=== PATIENT | male | born 1985 | race American Indian/Alaskan Native ===

== ENCOUNTER 2016-08-01 22:06 | Emergency (ER) | payer SELFPAY ==
[2016-08-02 02:01] LABS: Urine Drugs of Abuse Note Disclamer
[2016-08-02 02:22] LABS: Bilirubin,Urine NEG (Negative); Blood,Urine SM (Negative); Ketones,Urine NEG (Negative); Leukocyte Esterase,Urine NEG (Negative); Mucus,Urine FEW /HPF; Nitrite,Urine NEG (Negative); Urobilinogen,Urine < 2.0 mg/dL (<2.0)
[2016-08-02 02:55] VITALS: BP 125/85
--- NOTE | 2016-08-02 14:30 | ED Elopement Review ---
ED Pt Elopement review - Results review Lab results: Laboratory Tests 08/01/16 08/01/16 Unknown Unknown Urine Color Yellow Urine Turbidity Clear Urine pH 5.0 Ur Specific [place] 1.023 Urine Protein 30 mg/dl Urine Glucose (UA) Neg Urine Ketones Neg Urine Blood Sm Urine Nitrite Neg Urine Bilirubin Neg Urine Urobilinogen < 2.0 Ur Leukocyte Esterase Neg Urine WBC (Auto) 6.0 Urine RBC (Auto) 1.0 U Epithel Cells (Auto) < 1.0 Urine Mucus Few Urine Opiates Screen Presumptive negative Urine Methadone Screen Presumptive negative Ur Barbiturates Screen Presumptive negative Ur Phencyclidine Scrn Presumptive negative Ur Amphetamines Screen Presumptive negative U Benzodiazepines Scrn Presumptive negative Urine Cocaine Screen Presumptive negative U Marijuana (THC) Screen Presumptive positive Drugs of Abuse Note Disclamer - Call Back decision Pt Call Back Decision: Pt to F/U with PMD
== END 2016-08-02 04:56 | disposition left against medical advice (07) ==
LOC: ED 22:06
DX: R53.1 Weakness (principal); Z53.21 Procedure and treatment not carried out due to patient leaving prior to being seen by health care provider
CPT/HCPCS: 80307; 81001; 93005; 93010

== ENCOUNTER 2016-12-30 04:08 | Emergency (ER) | payer SELFPAY ==
[2016-12-30 04:15] VITALS: BP 125/72
--- NOTE | 2016-12-30 06:22 | Emergency Department Report ---
- General Chief Complaint: Upper Respiratory Infection Stated Complaint: COUGH Time Seen by Provider: 12/30/16 05:33 Source: patient Mode of arrival: Ambulatory Limitations: No Limitations - History of Present Illness Initial Comments: 31-year-old male past medical history smoker presents with complaint of 3 weeks of persistent productive cough. Subjective chills. Patient is awake alert and oriented 3 not in acute distress and nontoxic appearing. States he smokes 1-2 packs per day. Denies any dyspnea with exertion. Denies any abdominal pain diarrhea nausea or vomiting. Tolerating by mouth without difficulty. No audible wheezing or stridor. Denies sore throat. States he has not been taking any sjof-xkx-cfofkka medicines for his symptoms. Denies night sweats MD Complaint: cough Onset/Timin -: week(s) Severity: moderate Improves With: nothing Associated Symptoms: chills, cough Treatments Prior to Arrival: none - Related Data Previous Rx's Medication Instructions Recorded Last Taken Type Cyclobenzaprine [Flexeril] 10 mg PO TID PRN #14 tablet 07/10/13 Unknown Rx HYDROcodone/APAP 5-325 [[place] 1 each PO Q6HR PRN #14 tablet 07/10/13 Unknown Rx 5/325 mg] Ibuprofen [Motrin 600 MG tab] 600 mg PO Q8H PRN #30 tablet 07/10/13 Unknown Rx Ciprofloxacin HCl [Ciprofloxacin 500 mg PO Q12HR #14 tab 04/02/15 Unknown Rx TAB] Promethazine [Phenergan TAB] 25 mg PO Q6HR PRN #10 tab 04/02/15 Unknown Rx traMADol [Ultram 50 MG tab] 50 mg PO Q6HR PRN #20 tablet 04/02/15 Unknown Rx ALBUTEROL Inhaler [ProAir HFA 2 puff IH QID PRN #1 inhalation 12/30/16 Unknown Rx Inhaler] Azithromycin [Zithromax TAB] 250 mg PO QDAY #4 tablet 12/30/16 Unknown Rx Naproxen [Naprosyn TAB] 375 mg PO BID PRN #20 tablet 12/30/16 Unknown Rx Phenylephrine/Dm/Acetaminop/GG 10 ml PO Q4H PRN #1 bottle 12/30/16 Unknown Rx [Mucinex Hrfc-Sii-Ichxrfjlgj Lq] predniSONE [Deltasone] 40 mg PO QDAY #10 tab 12/30/16 Unknown Rx Allergies Allergy/AdvReac Type Severity Reaction Status Date / Time No Known Allergies Allergy Verified 04/02/15 07:46 ED Review of Systems ROS: Stated complaint: COUGH Other details as noted in HPI Constitutional: malaise. denies: chills, fever Eyes: denies: eye pain, eye discharge, vision change ENT: denies: ear pain, throat pain Respiratory: cough. denies: shortness of breath, wheezing Cardiovascular: denies: chest pain, palpitations Endocrine: no symptoms reported Gastrointestinal: denies: abdominal pain, nausea, diarrhea Genitourinary: denies: urgency, dysuria Musculoskeletal: denies: back pain, joint swelling, arthralgia Skin: denies: rash, lesions Neurological: denies: headache, weakness, paresthesias Psychiatric: denies: anxiety, depression Hematological/Lymphatic: denies: easy bleeding, easy bruising ED Past Medical Hx - Past Medical History Previous Medical History?: No Hx Hypertension: Yes Additional medical history: bronchitis - Surgical History Past Surgical History?: No - Social History Smoking Status: Current Every Day Smoker Substance Use Type: None - Medications Home Medications: Home Medications Medication Instructions Recorded Confirmed Last Taken Type Cyclobenzaprine [Flexeril] 10 mg PO TID PRN #14 tablet 07/10/13 Unknown Rx HYDROcodone/APAP 5-325 [[place] 1 each PO Q6HR PRN #14 tablet 07/10/13 Unknown Rx 5/325 mg] Ibuprofen [Motrin 600 MG tab] 600 mg PO Q8H PRN #30 tablet 07/10/13 Unknown Rx Ciprofloxacin HCl [Ciprofloxacin 500 mg PO Q12HR #14 tab 04/02/15 Unknown Rx TAB] Promethazine [Phenergan TAB] 25 mg PO Q6HR PRN #10 tab 04/02/15 Unknown Rx traMADol [Ultram 50 MG tab] 50 mg PO Q6HR PRN #20 tablet 04/02/15 Unknown Rx ALBUTEROL Inhaler [ProAir HFA 2 puff IH QID PRN #1 inhalation 12/30/16 Unknown Rx Inhaler] Azithromycin [Zithromax TAB] 250 mg PO QDAY #4 tablet 12/30/16 Unknown Rx Naproxen [Naprosyn TAB] 375 mg PO BID PRN #20 tablet 12/30/16 Unknown Rx Phenylephrine/Dm/Acetaminop/GG 10 ml PO Q4H PRN #1 bottle 12/30/16 Unknown Rx [Mucinex Szth-Juc-Eenjsqyvnd Lq] predniSONE [Deltasone] 40 mg PO QDAY #10 tab 12/30/16 Unknown Rx ED Physical Exam - General Limitations: No Limitations General appearance: alert, in no apparent distress - Head Head exam: Present: atraumatic, normocephalic - Eye Eye exam: Present: normal appearance, PERRL, EOMI - ENT ENT exam: Present: mucous membranes moist - Neck Neck exam: Present: normal inspection - Respiratory Respiratory exam: Present: decreased breath sounds (slightly decreased breath sounds right lower lung field. No audible wheezing or stridor or rhonchi). Absent: respiratory distress - Cardiovascular Cardiovascular Exam: Present: regular rate, normal rhythm. Absent: systolic murmur, diastolic murmur, rubs, gallop - GI/Abdominal GI/Abdominal exam: Present: soft, normal bowel sounds - Rectal Rectal exam: Present: deferred - Extremities Exam Extremities exam: Present: normal inspection - Back Exam Back exam: Present: normal inspection - Neurological Exam Neurological exam: Present: alert, oriented X3, CN II-XII intact, normal gait - Psychiatric Psychiatric exam: Present: normal affect, normal mood - Skin Skin exam: Present: warm, dry, intact, normal color. Absent: rash ED Course Vital Signs 12/30/16 04:12 Temperature 98.2 F Pulse Rate 83 Respiratory 17 Rate Blood Pressure 125/72 O2 Sat by Pulse 100 Oximetry ED Medical Decision Making - Medical Decision Making A/P: Acute bronchitis 1-patient is a smoker I will treat him empirically with azithromycin pack. Possible infiltrates right middle lobe region chest x-ray. 2-prednisone, naproxen, albuterol inhaler, Mucinex 3-f/u with primary care 4-I advised patient to follow-up but to return to the ED if he has high fevers and chills above 100.4 despite Tylenol arm naproxen use, if he develops inability to tolerate by mouth if he develops severe fevers and chills that do not improve over the next several days. For any dyspnea with exertion. Patient stated he understood my instructions. Critical care attestation.: If time is entered above; I have spent that time in minutes in the direct care of this critically ill patient, excluding procedure time. ED Disposition Clinical Impression: Acute bronchitis Qualifiers: Bronchitis organism: unspecified organism Qualified Code(s): J20.9 - Acute bronchitis, unspecified Reactive airway disease Qualifiers: Asthma severity: mild intermittent Asthma complication type: with acute exacerbation Qualified Code(s): J45.21 - Mild intermittent asthma with (acute) exacerbation Disposition: TO HOME OR SELFCARE Is pt being admited?: No Does the pt Need Aspirin: No Condition: Stable Instructions: Acute Bronchitis (ED) Prescriptions: ALBUTEROL Inhaler [ProAir HFA Inhaler] 2 puff IH QID PRN #1 inhalation PRN Reason: Shortness Of Breath Azithromycin [Zithromax TAB] 250 mg PO QDAY #4 tablet Naproxen [Naprosyn TAB] 375 mg PO BID PRN #20 tablet PRN Reason: Cough Phenylephrine/Dm/Acetaminop/GG [Mucinex Ybzy-Ekm-Svzmvpdeka Lq] 10 ml PO Q4H PRN #1 bottle PRN Reason: Cough predniSONE [Deltasone] 40 mg PO QDAY #10 tab Referrals: [facility] [Outside] - 3-5 Days [facility] [Outside] - 3-5 Days [facility] [Provider Group] - 3-5 Days Forms: Work/School Release Form(ED) Time of Disposition: 06:33
[2016-12-30] MEDS ORDERED: ZITHROMAX PO ONE (06:25)
[2016-12-30] MEDS ORDERED: MOTRIN PO ONE (06:26)
[2016-12-30] MEDS ORDERED: DUONEB *Not for PRN Use IH ONE (06:26)
[2016-12-30] MEDS ORDERED: PROVENTIL IH ONE (06:26)
[2016-12-30] MEDS ORDERED: ROBITUSSIN DM PO ONE (06:27)
--- NOTE | 2016-12-30 09:11 | XRay Report ---
Chest 2 views: History: Cough. Findings: Normal cardiomediastinal silhouette. Trachea is midline. No consolidation, pneumothorax or pleural effusion. Impression: No acute cardiopulmonary findings.
== END 2016-12-30 06:48 | disposition home or self-care (01) ==
LOC: ED 04:08
DX: J45.909 Unspecified asthma, uncomplicated (principal); J20.9 Acute bronchitis, unspecified; I10 Essential (primary) hypertension; F17.200 Nicotine dependence, unspecified, uncomplicated
CPT/HCPCS: 71020; 94640

== ENCOUNTER 2017-01-22 02:09 | Emergency (ER) | payer SELFPAY ==
[2017-01-22 02:14] VITALS: BP 128/82
--- NOTE | 2017-01-22 02:46 | XRay Report ---
FINAL REPORT PROCEDURE: XR CHEST ROUTINE 2V TECHNIQUE: PA and lateral chest radiographs were obtained. CPT 39898 HISTORY: Productive cough COMPARISON: No prior studies are available for comparison. FINDINGS: Heart: Normal. Mediastinum/Vessels: Normal. Lungs/Pleural space: Normal. Bony thorax: No acute osseous abnormality. Other: IMPRESSION: Normal examination.
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
== END 2017-01-22 05:28 | disposition home or self-care (01) ==
LOC: ED 02:09
DX: J02.9 Acute pharyngitis, unspecified (principal); I10 Essential (primary) hypertension; F12.10 Cannabis abuse, uncomplicated; F17.200 Nicotine dependence, unspecified, uncomplicated
CPT/HCPCS: 71020; 99283

== ENCOUNTER 2018-02-12 23:28 | Emergency (ER) | payer SELFPAY ==
[2018-02-13 00:18] VITALS: BP 131/76
== END 2018-02-13 00:39 | disposition left against medical advice (07) ==
LOC: ED 23:28
DX: R51 Headache (principal); Z53.21 Procedure and treatment not carried out due to patient leaving prior to being seen by health care provider

== ENCOUNTER 2019-05-20 09:49 | Emergency (ER) | payer SELFPAY ==
[2019-05-20 10:14] VITALS: BP 139/81
[2019-05-20] MEDS ORDERED: BENZONATATE 100 MG CAP PO ONE (11:39)
[2019-05-20] MEDS ORDERED: IBUPROFEN 800 MG TAB PO ONE (11:39)
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
--- NOTE | 2019-05-20 12:49 | XRay Report ---
CHEST 2 VIEWS INDICATION / CLINICAL INFORMATION: cough. COMPARISON: None available. FINDINGS: SUPPORT DEVICES: None. HEART / MEDIASTINUM: No significant abnormality. LUNGS / PLEURA: No significant pulmonary or pleural abnormality. No pneumothorax. ADDITIONAL FINDINGS: No significant additional findings. IMPRESSION: 1. No acute findings. Signer Name: Rell Doshi MD Signed: 05/20/2019 12:44 PM Workstation Name: [id number]
== END 2019-05-20 14:17 | disposition home or self-care (01) ==
LOC: ED 09:49
DX: J11.1 Influenza due to unidentified influenza virus with other respiratory manifestations (principal); J32.9 Chronic sinusitis, unspecified; I10 Essential (primary) hypertension; J40 Bronchitis, not specified as acute or chronic; F17.200 Nicotine dependence, unspecified, uncomplicated; Z98.890 Other specified postprocedural states; Z79.1 Long term (current) use of non-steroidal anti-inflammatories (NSAID); Z79.2 Long term (current) use of antibiotics; Z79.899 Other long term (current) drug therapy
CPT/HCPCS: 71046